=== PATIENT | female | born 2000 | race African-American/Black ===

== ENCOUNTER 2021-02-14 15:47 | Emergency (ER) | payer OTHER ==
[~2021-02-14] VITALS: Ht 170.2 cm; Wt 70.9 kg
[2021-02-14 16:10] VITALS: Ht 170.2 cm; Wt 70.9 kg
[2021-02-14] MEDS ORDERED: PROZAC20 MG PO (16:11)
[2021-02-14 17:21] VITALS: BP 107/64
== END 2021-02-14 19:13 | disposition home or self-care (01) ==
LOC: D.ER 15:47
DX: F41.9 Anxiety disorder, unspecified (principal)